=== PATIENT | male | born 1995 | race African-American/Black ===

== ENCOUNTER 2018-11-16 20:47 | Emergency (ER) | payer SELFPAY ==
[~2018-11-16] VITALS: Ht 160 cm; Wt 69.1 kg
[2018-11-16 20:59] VITALS: BP 137/87; TEMP 99.5
[2018-11-16 23:45] LABS: COLLECTION METHOD CLEAN CATCH
[2018-11-16 23:51] LABS: PH 6 (5-8); SQUAMOUS EPITHELIAL None Seen /hpf; URINE APPEARANCE Clear; URINE BACTERIA None Seen /hpf; URINE BILIRUBIN Negative (NEGATIVE); URINE BLOOD Negative (NEGATIVE); URINE COLOR Yellow; URINE GLUCOSE Negative (NEGATIVE); URINE KETONE Negative (NEGATIVE); URINE LEUKOCYTE ESTERASE Negative (NEGATIVE); URINE NITRATE Negative (NEGATIVE); URINE PROTEIN(semi-quant) Negative (NEGATIVE); URINE RBC 0-2 /hpf; URINE UROBILINOGEN Negative (NEGATIVE)
[2018-11-17 01:31] VITALS: PULSE 78
== END 2018-11-17 01:32 | disposition home or self-care (01) ==
LOC: COL.ER 20:47
PROVIDERS: Nurse Practitioner
DX: Z20.2 Contact with and (suspected) exposure to infections with a predominantly sexual mode of transmission (principal)
CPT/HCPCS: J0696